=== PATIENT | male | born 1995 | race Two or more races ===

== ENCOUNTER 2018-12-14 13:00 | Emergency (ER) | payer SELFPAY ==
[2018-12-14 13:09] VITALS: BP 134/67
--- NOTE | 2018-12-14 13:44 | ER Document Report ---
ED Medical Screen (RME) - General Chief Complaint: Chest Wall Pain Stated Complaint: CHEST PAIN Time Seen by Provider: 12/14/18 13:28 Mode of Arrival: Ambulatory Information source: Patient Notes: Patient presents with chief complaint of left anterior chest pain that is reproducible to palpation. Patient denies any nausea, vomiting, shortness of breath or diaphoresis. Patient states pain has been present for 3 days. Pain is worse with movement and cough. Exam: Point tenderness to left chest wall just under the nipple. Lung sounds clear and equal bilaterally. I have greeted and performed a rapid initial assessment of this patient. A comprehensive ED assessment and evaluation of the patient, analysis of test results and completion of the medical decision making process will be conducted by additional ED providers. Dictation of this chart was performed using voice recognition software; therefore, there may be some unintended grammatical errors. TRAVEL OUTSIDE OF THE [place] IN LAST 30 DAYS: No - Related Data Allergies/Adverse Reactions: Penicillins Allergy (Verified 12/14/18 13:02) Past Medical History - Social History Frequency of alcohol use: None Drug Abuse: None Renal/ Medical History: Denies: Hx Peritoneal Dialysis Physical Exam - Vital signs Vitals: Temp Pulse Resp BP Pulse Ox 98.2 F 67 14 134/67 H 99 12/14/18 13:08 12/14/18 13:08 12/14/18 13:08 12/14/18 13:08 12/14/18 13:08 Course - Vital Signs Vital signs: Temp Pulse Resp BP Pulse Ox 98.2 F 67 14 134/67 H 99 12/14/18 13:08 12/14/18 13:08 12/14/18 13:08 12/14/18 13:08 12/14/18 13:08
--- NOTE | 2018-12-14 14:01 | RADIOLOGY REPORT (SQ) ---
EXAM DESCRIPTION: CHEST 2 VIEWS COMPLETED DATE/TIME: 12/14/2018 1:54 pm REASON FOR STUDY: chest pain COMPARISON: None. EXAM PARAMETERS: NUMBER OF VIEWS: two views TECHNIQUE: Digital Frontal and Lateral radiographic views of the chest acquired. RADIATION DOSE: NA LIMITATIONS: none FINDINGS: LUNGS AND PLEURA: No opacities, masses or pneumothorax. No pleural effusion. MEDIASTINUM AND HILAR STRUCTURES: No masses or contour abnormalities. HEART AND VASCULAR STRUCTURES: Heart normal size. No evidence for failure. BONES: No acute findings. HARDWARE: None in the chest. OTHER: No other significant finding. IMPRESSION: NO ACUTE RADIOGRAPHIC FINDING IN THE CHEST. TECHNICAL DOCUMENTATION: JOB ID: [id number] [employer]- All Rights Reserved Reading location - IP/workstation name: [email or web address]
--- NOTE | 2018-12-14 14:04 | EKG REPORT ---
SEVERITY:- ABNORMAL ECG - SINUS RHYTHM CONSIDER LEFT VENTRICULAR HYPERTROPHY INFERIOR Q WAVES, PROBABLY NORMAL VARIATION ST ELEV, PROBABLE NORMAL EARLY REPOL PATTERN : Confirmed by: Danie Ruiz MD 14-Dec-2018 14:04:34
--- NOTE | 2018-12-14 14:18 | ER Document Report ---
ED General - General Chief Complaint: Chest Wall Pain Stated Complaint: CHEST PAIN Time Seen by Provider: 12/14/18 13:28 Mode of Arrival: Ambulatory Information source: Patient TRAVEL OUTSIDE OF THE [place] IN LAST 30 DAYS: No - HPI Patient complains to provider of: Chest wall pain Onset: Other - 3 days ago Onset/Duration: Persistent Quality of pain: Pressure Severity: Moderate Pain Level: 2 Associated symptoms: None Exacerbated by: Movement, Other - Palpation Relieved by: Denies Similar symptoms previously: No Recently seen / treated by doctor: No Notes: 23-year-old male coming in today with left-sided chest wall pain. 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 Pain in his chest is a pressure but is readily reproducible with twisting and moving his left arm at the shoulder joint. He does not have any shortness of breath. Does not have diaphoresis. Does not have neck or jaw pain. He does not smoke drink or use any drugs. Has no family history for heart disease. No personal history of hypertension, hyperlipidemia, or diabetes. - Related Data Allergies/Adverse Reactions: Penicillins Allergy (Verified 12/14/18 13:02) Past Medical History - General Information source: Patient - Social History Smoking Status: Never Smoker Frequency of alcohol use: None Drug Abuse: None Family History: Reviewed & Not Pertinent Patient has suicidal ideation: No Patient has homicidal ideation: No Renal/ Medical History: Denies: Hx Peritoneal Dialysis Review of Systems - Review of Systems Notes: Constitutional: No fevers. No chills. EENT: No eye redness. No eye pain. No ear pain. No sore throat. Cardiovascular: No chest pain. No palpitations. Respiratory: No cough. No shortness of breath. No respiratory distress. Gastrointestinal: No abdominal pain. No nausea, vomiting, or diarrhea. Genitourinary: Atraumatic. No lesions. No pain. No discharge. Musculoskeletal: Left sided chest wall pain Skin: No rash or lesions. Lymphatic: No swollen lymph nodes. Neurologic: No headache. No syncope. Psychiatric: No suicidal or homicidal ideation. Physical Exam - Vital signs Vitals: Temp Pulse Resp BP Pulse Ox 98.2 F 67 14 134/67 H 99 12/14/18 13:08 12/14/18 13:08 12/14/18 13:08 12/14/18 13:08 12/14/18 13:08 - Notes Notes: General: Well-developed, well-nourished. In no acute distress. Non-toxic appearing. Cardiac: Well-perfused. Regular rate and rhythm. No murmurs, rubs, or gallops. Pulmonary: No respiratory distress. No cyanosis. Bilateral lung fiels are clear to auscultation. Abdominal: Non-distended. Non-rigid. Bowels sounds are present in all four quadrants. No guarding or rebound. HEENT: Head is atraumatic. Conjunctivae not reddened. No tearing. PERRL. EOMI. Orbits atraumatic. No periorbital swelling or erythema. Oropharynx is without erythema, swelling, or exudates. Neck: Supple. No adenopathy. No meningismus. Dermatologic: Warm with good turgor. No rash. Atraumatic. Chest: Atraumatic. Tenderness to left anterior chest wall palpation Musculoskeletal: Moves all extremities well. No range of motion deficits. no muscular or joint tenderness. No paraspinal muscle tenderness. no midline spinal tenderness or step-off. Genitourinary: Examination deferred Neurologic: No gross neurologic deficits. Psychiatric: Normal mood. Course - Vital Signs Vital signs: Temp Pulse Resp BP Pulse Ox 98.2 F 67 14 134/67 H 99 12/14/18 13:08 12/14/18 13:08 12/14/18 13:08 12/14/18 13:08 12/14/18 13:08 - EKG Interpretation by Pa EKG shows normal: Sinus rhythm, [place], Intervals, QRS Complexes, ST-T Waves Discharge - Discharge Clinical Impression: Left-sided chest wall pain, Elevated blood pressure reading Condition: Good Disposition: HOME, SELF-CARE Instructions: Anti-Inflammatory Medication ([facility]), Chest Wall Pain ([facility]) Additional Instructions: Naproxen sodium 500 mg prescription tablets 1 tab every 12 hours as needed for chest wall pain. If this prescription is too expensive, you can use [id number] naproxen sodium 220 mg tablets 2 tablets every 12 hours as needed for pain. Cold compresses may be helpful for 20 minutes every hour. Prescriptions: Naproxen 500 mg PO BID 7 Days #14 tablet Forms: Elevated Blood Pressure Referrals: [facility] [Provider Group] - Follow up as needed
== END 2018-12-14 14:26 | disposition home or self-care (01) ==
LOC: ER 13:00
DX: R07.89 Other chest pain (principal); R03.0 Elevated blood-pressure reading, without diagnosis of hypertension; Z88.0 Allergy status to penicillin
CPT/HCPCS: 71046; 93005; 93010; 99284